=== PATIENT | male | born 2000 | race Caucasian/White ===

== ENCOUNTER 2023-03-26 16:35 | Emergency (ER) | payer OTHER ==
--- NOTE | 2023-03-26 17:12 | ED Physician Documentation ---
PD HPI UPPER EXT INJURY - Stated complaint Stated Complaint: L THUMB LAC - Chief complaint Chief Complaint: Laceration - History obtained from History obtained from: Patient - History of Present Illness Location: Left, Finger (thumb) Type of injury: Blunt / blow (He was chopping out some wood to make kindling and accidentally hit the top of his left thumb wearing gloves. He saw bleeding from it and immediately wrapped it.) Timing - onset: How many hours ago (1), Today Worsened by: Moving, Palpating Associated symptoms: No: Weakness, Numbness Similar symptoms before: Has not had sx before Review of Systems Neurologic: denies: Focal weakness, Numbness PD PAST MEDICAL HISTORY - Past Medical History Past Medical History: Yes Other Past Medical History: one kidney - Past Surgical History Past Surgical History: No - Allergies Allergies/Adverse Reactions: Allergies Allergy/AdvReac Type Severity Reaction Status Date / Time aspirin Allergy Anaphylaxis Verified 03/26/23 16:52 - Social History Does the pt smoke?: No Smoking Status: Never smoker PD ED PE NORMAL - Vitals Vital signs reviewed: Yes - General General: Alert and oriented X 3, No acute distress, Well developed/nourished - Derm Derm: Normal color, Warm and dry - Extremities Extremities: Other (The left thumb shows a crisp laceration 1.2 cm through the dorsum of the distal phalanx of the left thumb. Its through the nailbed horizontally but incompletely through. There is no displacement of the nail. The laceration extends 3-4mm to the radial side but the edges are approximated and no FB.) - Neuro Neuro: No motor deficit, No sensory deficit Results - Vitals Vitals: Vital Signs - 24 hr 03/26/23 03/26/23 16:49 18:47 Temperature 36.5 C Heart Rate 100 90 Respiratory 18 18 Rate Blood Pressure 131/83 H 128/80 O2 Saturation 100 99 - Rads (name of study) left thumb Relevant Findings:: Prelim report reviewed, EMP independent interpretation of test (no fractures) PD Medical Decision Making - ED course Complexity details: reviewed results (xray thumb shows no fractures. ), considered differential (thumb lac at nail/nailbed but not displaced nail and no sutures needed at edge.), d/w patient Departure - Departure Disposition: 01 Home, Self Care Clinical Impression: Accidental injury due to hand tool Nailbed laceration, finger Qualifiers: Encounter type: initial encounter Qualified Code(s): S61.319A - Laceration without foreign body of unspecified finger with damage to nail, initial encounter Condition: Stable Record reviewed to determine appropriate education?: Yes Instructions: ED Laceration Hand Comments: The injury to the nailbed is protected by the nail still in place. The growth part is from the base of the nail also this should just grow out over time. Currently it acts as a good protection for the nailbed. The portion cut to the side of the nailbed does not need suturing. It can be held with just a Band- Aid. Cleanse the area with soap and water time or 2 a day and apply some ointment. It is going to be sore because there is a lot of nerve endings to the nailbed. Your x-ray was good without any signs of fractures. We did provide a protective splint for the tip of the thumb. You can use that to help guard motion and such. Discontinue use when it feels better enough. Tylenol or ibuprofen or both if needed for pains. This should improve over the next 2 to 3 days. Will obviously take a week or more for the wound to heal. The portion of the injured nail bed will take time to grow out to the tip. Forms: PCP List Discharge Date/Time: 03/26/23 18:48
[2023-03-26] MEDS ORDERED: IBUPROFEN 600 MG TABLET PO STA (17:52)
[2023-03-26] MEDS ORDERED: LIDOCAINE-EPINEPH-TETRACAINE 3 ML SYRINGE TOP STA (17:52)
[2023-03-26] MEDS ORDERED: ACETAMINOPHEN 325 MG TABLET PO STA (17:52)
--- NOTE | 2023-03-26 18:45 | XRAY Report ---
PROCEDURE: Finger(s) LT INDICATIONS: thumb TECHNIQUE: AP hand, 2 views of the thumb finger(s) acquired. COMPARISON: None. FINDINGS: Bones: No fractures or dislocations. No suspicious bony lesions. Soft tissues: No suspicious soft tissue calcifications or masses. Soft tissue irregularity over th e thumb. IMPRESSION: No acute bony abnormality. Reviewed by: Jarocho Alaniz MD on 03/26/2023 5:44 PM [place] Approved by: Jarocho Alaniz MD on 03/26/2023 5:44 PM [place] Station ID: [id number]
[2023-03-26 18:53] VITALS: BP 128/80; O2SAT 99
== END 2023-03-26 18:48 | disposition home or self-care (01) ==
LOC: ED 16:35
DX: S61.112A Laceration without foreign body of left thumb with damage to nail, initial encounter (principal); W27.8XXA Contact with other nonpowered hand tool, initial encounter; Y93.89 Activity, other specified
CPT/HCPCS: 99283